=== PATIENT | female | born 2005 | race African-American/Black ===

== ENCOUNTER 2024-11-20 10:12 | Emergency (ER) | payer OTHER, SELFPAY ==
[2024-11-20 11:06] VITALS: BP 112/67; PULSE 64; RESP 16; TEMP 36; O2SAT 100
--- NOTE | 2024-11-20 11:32 | ED.GENADULT ---
HPI - General Adult General Chief complaint: Urogenital-Female Stated complaint: UTI SYMPTOMS & SINUS CONGESTION/DENTAL PAIN Time Seen by Provider: 11/20/24 11:33 Source: patient Mode of arrival: ambulatory Limitations: no limitations History of Present Illness HPI narrative: 19-year-old female patient presents to [facility] with complaints of increased to urinary frequency. Denies any pain with urination but states she has had some abdominal cramping. Patient states she just got off her period last week. Denies any vaginal discharge. Denies fevers, body aches or chills. Patient also reports that she has increased her fluid intake with Cook which could be contributing to the increased urinary frequency. Related Data Home Medications ?Medication ?Instructions ?Recorded ?Confirmed ?Last Taken ?Type No Home Medications 11/20/24 11/20/24 Unknown History Allergies Allergy/AdvReac Type Severity Reaction Status Date / Time No Known Allergies Allergy Verified 11/20/24 11:13 Review of Systems Review of Systems: CONSTITUTIONAL: Denies fever, chills, or sweats. EYES: Denies visual changes, redness, or discharge. ENT: Denies rhinorrhea, congestion, sore throat, or otalgia. CARDIOVASCULAR: Denies chest pain, palpitations, or edema. RESPIRATORY: Denies cough or dyspnea. GASTROINTESTINAL: positive lower abdominal cramping, denies nausea, vomiting, or diarrhea. GENITOURINARY: Positive dysuria, denies hematuria. SKIN: Denies rash or itching. MUSCULOSKELETAL: Denies back pain, joint pain, or myalgia. NEUROLOGIC: Denies headache, numbness, or weakness. PSYCHIATRIC: Denies anxiety or depression. PMFSH Comments At the time of my signature I agree with nursing past medical history, surgical, social, and family history. There is no relevant family history pertinent to the presenting complaint. Exam Narrative: GENERAL: Well-appearing, well-nourished, and in no acute distress. HEAD: Normocephalic, atraumatic. EYES: PERRLA and EOMI. ENT: Nares clear, no rhinorrhea or epistaxis. Mucous membranes moist. NECK: Supple. No lymphadenopathy CHEST: Clear to auscultation. No respiratory distress. HEART: Regular rate and rhythm. No murmur heard. Normal peripheral pulses. no CVA tenderness on percussion ABDOMEN: Soft, flat, nondistended. No guarding, rebound tenderness, or rigid. No pulsatilla masses. Bowel sounds present in all four quadrants. No organomegaly. Negative Escoto?s sign. No periumbicial tenderness. mild Supra public tenderness or distension. Good femoral pulses bilaterally. No hernia noted. No scars or surface trauma. EXTREMITIES: Normal range of motion. No edema. SKIN: Warm, dry, no rash. NEURO: No focal deficits. Alert and oriented x3. Course Course Level of Care: Express Care Visit Vital Signs Vital signs: Vital Signs Temperature 36.0 C L 11/20/24 11:06 Pulse Rate 64 11/20/24 11:06 Respiratory Rate 16 11/20/24 11:06 Blood Pressure 112/67 11/20/24 11:06 Pulse Oximetry 100 11/20/24 11:06 Temperature 36.0 C L 11/20/24 11:06 Pulse Rate 64 11/20/24 11:06 Respiratory Rate 16 11/20/24 11:06 Blood Pressure 112/67 11/20/24 11:06 Pulse Oximetry 100 11/20/24 11:06 Vital signs reviewed. Medical Decision Making MDM Narrative Medical decision making narrative: notify patient that her urine dip is negative. Discussed with patient that we will send it off to lab for culture and if the culture shows anything we will call her antibiotics at that time. Meanwhile I would highly encourage continue drinking lots of fluid to flush anything out if the abdominal pain gets worse she needs to go to the ER for further evaluation and treatment. Patient verbalized understanding denies any other questions or concerns at this time. Differential Diagnosis Differential Diagnosis: Differential diagnosis: Uncomplicated lower UTI, uncomplicated UTI, pyelonephritis Vital Signs Vital Signs: Vital Signs Temperature 36.0 C L 11/20/24 11:06 Pulse Rate 64 11/20/24 11:06 Respiratory Rate 16 11/20/24 11:06 Blood Pressure 112/67 11/20/24 11:06 Pulse Oximetry 100 11/20/24 11:06 Temperature 36.0 C L 11/20/24 11:06 Pulse Rate 64 11/20/24 11:06 Respiratory Rate 16 11/20/24 11:06 Blood Pressure 112/67 11/20/24 11:06 Pulse Oximetry 100 11/20/24 11:06 Critical Care Time Critical Care Time Critical Care Time: No Discharge Plan Discharge Clinical Impression: Increased frequency of urination Patient Disposition: Home, Self-Care Condition: Stable Instructions: Antibiotic Form, Dysuria (ED) Additional Instructions: We will send a urine culture off to the lab; if the culture identifies an organism, you will receive a phone call from an urgent care staff member and an appropriate antibiotic will be prescribed. -Also recommend: drink more fluid. It might help flush out germs, and it does no harm -Tylenol/ibuprofen prn for pain or fever -Follow-up with your primary care provider for urine recheck or seek ER visit if condition worsens with high fever, nausea, vomiting and severe back pain. Patient Language: Indonesian Prescriptions: No Action No Home Medications Follow-up/Referrals: UNKNOWN,DOCTOR [Primary Care Provider] - Time of Disposition: 11:41
[2024-11-20 11:42] LABS: EDUAAPPEAR Cloudy; EDUABILI Negative (Negative); EDUABLOOD Negative (Negative); EDUACOLOR1 Light/Pale; EDUAGLUCOSE Negative (Negative); EDUAKETONE Negative (Negative); EDUALEUKO Negative (Negative); EDUANITRATE Negative (Negative); EDUAPROTEIN Negative (Negative); EDUAUROBILI 0.2
[2024-11-20 11:44] LABS: BEDSIDEPREGUCG Negative (Negative)
== END 2024-11-20 11:47 | disposition home or self-care (01) ==
PROVIDERS: Emergency Provider Nurse Practitioner Family
DX: R35.0 Frequency of micturition (principal)
CPT/HCPCS: 81003; 81025; 87086; 99203; G0463